=== PATIENT | male | born 1995 | race African-American/Black ===

== ENCOUNTER 2023-05-26 23:54 | Emergency (ER) | payer MEDICAID ==
[~2023-05-26] VITALS: Ht 175.3 cm; Wt 65.9 kg
[~2023-05-26 23:54] MED LIST: NO HOME MEDS
[2023-05-27 01:52] VITALS: BP 110/82
== END 2023-05-27 01:55 | disposition home or self-care (01) ==
LOC: ER 23:54
DX: M25.531 Pain in right wrist (principal); F12.90 Cannabis use, unspecified, uncomplicated; Z72.89 Other problems related to lifestyle; Z60.2 Problems related to living alone; Z79.899 Other long term (current) drug therapy
CPT/HCPCS: 73110; 99283; A6449